=== PATIENT | female | born 1960 | race Caucasian/White ===

== ENCOUNTER 2018-10-21 09:06 | Day surgery (SDC) | payer OTHER ==
[2018-10-21] MEDS ORDERED: MIDAZOLAM 1 MG/ML 2 ML INJ ×2 (11:11)
[2018-10-21] MEDS ORDERED: FENTAnyl 50 MCG/ML VIAL (11:12)
== END 2018-10-21 15:31 | disposition home or self-care (01) ==
LOC: GIL 09:06
DX: Z12.11 Encounter for screening for malignant neoplasm of colon (principal); K64.4 Residual hemorrhoidal skin tags; K57.30 Diverticulosis of large intestine without perforation or abscess without bleeding; K29.50 Unspecified chronic gastritis without bleeding
CPT/HCPCS: 43239; 88305; 88312